=== PATIENT | male | born 1940 | race Caucasian/White ===

== ENCOUNTER → 2017-09-08 12:50 | Outpatient (CLI) | payer MEDICARE, OTHER, SELFPAY ==
--- NOTE | 2017-09-08 | DI.CT.S_ITS ---
PROCEDURE: CT CERVICAL SPINE WO CON INDICATIONS: CERVICAL SPINE TRAUMA/FRACTURE OF C1 TECHNIQUE: Noncontrast 3 mm thick sections acquired from the skull base to the T4 level. Sagittal and coronal reformats were then constructed. For radiation dose reduction, the following was used: automated exposure control, adjustment of mA and/or kV according to patient size. COMPARISON: [facility], CR, XR CERVICAL SPINE 2 OR 3 VIEWS, 07/06/2017, 10:33. Outside Facility, RG, CT C SPINE WITHOUT CONTRAST, 03/02/2017, 19:58. Outside Facility, RG, XR C-SPINE 2-3V, 06/08/2017, 11:21. FINDINGS: Image quality: Excellent. Bones: A highly comminuted fracture of the right body, pedicle and transverse process of C1 is identified on the outside exam. Current study shows considerable healing and probable resorption of some of the fracture fragments. No fracture of the occipital condyle or C2 is identified. No osseous compromise of the right C2-C3 neural canal. Degenerative disc disease and facet arthropathy noted in the lower cervical spine. Mild retrolisthesis C4-5 and C5-6. Anterolisthesis C7-T1. Soft tissues: Prevertebral soft tissues are normal in thickness. No paravertebral hematomas. No apical pneumothoraces. IMPRESSION: 1. Residual of comminuted fracture right body of C1. 2. 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 Dictated by: Manfred Humphrey M.D. on 09/08/2017 at 16:25 Approved by: Manfred Humhprey M.D. on 09/08/2017 at 16:34
== END ==
PROVIDERS: PCP Family Medicine; Visit Provider Family Medicine
DX: S12.000A Unspecified displaced fracture of first cervical vertebra, initial encounter for closed fracture (principal)
CPT/HCPCS: 72125

== ENCOUNTER → 2019-01-25 11:20 | Outpatient (CLI) | payer MEDICARE, OTHER, SELFPAY ==
--- NOTE | 2019-01-25 | DI.US.S_ITS ---
PROCEDURE: US RENAL COMPLETE INDICATIONS: RETENTION OF URINE TECHNIQUE: Real-time scanning was performed of the kidneys and bladder, with image documentation. COMPARISON: [facility], , RENAL COMPLETE, 09/14/2016, 14:28. FINDINGS: Kidneys: Kidneys are normal in size. Right kidney measures 11.1 cm long; left kidney measures 11.5 cm long. Right renal cortical thickness is 1 cm; left renal cortical thickness is 1.6 cm. Renal cortical echotexture is normal. No solid mass. Simple peripelvic cyst in the left kidney measuring 1.5 x 1.4 x 1.3 cm. No hydronephrosis. Nonobstructing right kidney stone measuring 5 mm. Bladder: Pre-void bladder volume is 330 mL. Post-void residual is 186 mL. Pre-void images demonstrate no intraluminal masses or stones. Bilateral ureteral jets are seen. Bladder diverticuli measuring up 3.1 x 2 x 1.5 cm. No debris identified in the bladder. Miscellaneous: No free pelvic fluid. IMPRESSION: 1. Postvoid residual of 186 mL. 2. Small bladder diverticulum often seen in bladder outlet obstruction. 3. Nonobstructing right kidney stone measuring 5 mm. No hydronephrosis. Dictated by: Levi Ardon M.D. on 01/25/2019 at 13:47 Approved by: Levi Ardon M.D. on 01/25/2019 at 13:52
== END ==
PROVIDERS: PCP Family Medicine; Visit Provider Physician Assistant
DX: R33.9 Retention of urine, unspecified (principal); N20.0 Calculus of kidney; N32.3 Diverticulum of bladder
CPT/HCPCS: 76770